=== PATIENT | female | born 1970 | race Caucasian/White ===

== ENCOUNTER 2017-01-24 16:28 | Emergency (ER) | payer SELFPAY ==
--- NOTE | 2017-01-24 19:10 | NUR ---
PATIENT LEFT WITHOUT BEING SEEN BY DR. WILLIAM. NO FURTHER CARE PROVIDED FOR PATIENT.
== END 2017-01-24 19:10 | disposition left against medical advice (07) ==
LOC: MED 16:28
DX: M54.2 Cervicalgia (principal); Z53.21 Procedure and treatment not carried out due to patient leaving prior to being seen by health care provider
CPT/HCPCS: 72040; 99281

== ENCOUNTER 2019-11-29 19:00 | Emergency (ER) | payer MEDICAID ==
[~2019-11-29] VITALS: Ht 149.9 cm; Wt 64.4 kg
[2019-11-29 19:06] VITALS: BP 116/74
--- NOTE | 2019-11-29 21:01 | NUR ---
PT TAKEN TO BED #12.
--- NOTE | 2019-11-29 21:40 | NUR ---
49 Y/O FEMALE C/O COLD SX X 3 DAYS. PRODUCTIVE AND DRY COUGH PRESENT. LUNG SOUNDS CLEAR ALL THORUGHOUT. NO RESP DISTRESS NOTE. NO SOB. A & O X4. STEADY GAIT. VSS. BODY ACHES AND DUNCAN PRESENT. RATES PAIN 8/10. CHEST RISE AND FALL EQUAL. UNLABORED AND EVEN RESPIRATIONS. PT ALSO STATES EVERYONE AT HOME IS SICK. ALLERGIES: PENCILLIN PMH: ASTHMA.
[2019-11-29] MEDS ORDERED: IBUPROFEN 800 MG TAB PO ONE (23:00)
[2019-11-29] MEDS ORDERED: DEXAMETHASONE 4 MG/ML VIAL PO ONE (23:00)
--- NOTE | 2019-11-29 23:17 | NUR ---
XR AT BEDSIDE.
--- NOTE | 2019-11-30 01:39 | NUR ---
Patient discharged with v/s stable. Written and verbal after care instructions given and explained. Patient alert, oriented and verbalized understanding of instructions. Ambulatory with steady gait. All questions addressed prior to discharge. ID band removed. Patient advised to follow up with PMD. Rx of TESSALON PERLES AND TAMIFLU given. Patient educated on indication of medication including possible reaction and side effects. Opportunity to ask questions provided and answered.
[2019-11-30 01:40] VITALS: BP 102/59
== END 2019-11-30 01:39 | disposition home or self-care (01) ==
LOC: MED 19:00
DX: B34.9 Viral infection, unspecified (principal); J11.1 Influenza due to unidentified influenza virus with other respiratory manifestations; J45.909 Unspecified asthma, uncomplicated; Z88.0 Allergy status to penicillin
CPT/HCPCS: 71045; 99283; J1100; Q0092; 99285